=== PATIENT | female | born 1935 | race Hispanic/Latino ===

== ENCOUNTER 2017-11-26 21:34 | Inpatient (IN) | payer MEDICARE ==
[2017-11-26 21:54] VITALS: BMI 36.7
--- NOTE | 2017-11-26 21:55 | ED PDOC ---
Arrival/HPI - General Chief Complaint: Syncope Time Seen by Provider: 11/26/17 21:38 Historian: Patient - History of Present Illness Narrative History of Present Illness (Text): 11/26/17 21:55 Kimi Apple is an 82 year old female, whose past medical history includes anxiety, hypertension, sciatica, and spinal stenosis, who presents to the emergency department brought in by EMS accompanied by family status post syncopal episode . Daughter states patient was at a family member's mott at [facility] [place] prior to arrival when she began feeling weak, dizzy, and light-headed. Daughter states patient subsequently had a brief syncopal episode but did not fall to the ground. EMS was notified and patient brought to the ER for further evaluation. Patient denies any headache, chest pain, shortness of breath, abdominal pain, nausea, vomiting, diarrhea, neck pain, or any other complaints. PMD: Dr. Ya Arias Time/Duration: Prior to Arrival Symptom Onset: Gradual Symptom Course: Unchanged Activities at Onset: Light Context: Standing, Other (Spiritism) Past Medical History - Provider Review Nursing Documentation Reviewed: Yes - Cardiac Hx Hypertension: Yes - Pulmonary Hx Respiratory Disorders: No - Neurological Other/Comment: hx sciatica - Renal Hx Renal Disorder: No - Endocrine/Metabolic Hx Endocrine Disorders: No - Hematological/Oncological Hx Blood Disorders: No - Integumentary Hx Dermatological Disorder: No - Musculoskeletal/Rheumatological Hx Osteoarthritis: Yes - Gastrointestinal Hx Gastrointestinal Disorders: No - Genitourinary/Gynecological Hx Genitourinary Disorders: No - Psychiatric Hx Depression: Yes Hx Substance Use: No - Anesthesia Hx Anesthesia: No Hx Anesthesia Reactions: No Hx Malignant Hyperthermia: No Family/Social History - Physician Review Nursing Documentation Reviewed: Yes Family/Social History: Unknown Family HX Smoking Status: Never Smoked Hx Alcohol Use: No Hx Substance Use: No Allergies/Home Meds Allergies/Adverse Reactions: Allergies No Known Allergies Allergy (Verified 11/26/17 21:47) Home Medications: Home Meds Medication Instructions Recorded Confirmed Escitalopram [Lexapro] 10 mg PO DAILY 11/26/17 11/26/17 Metoprolol Succinate [Toprol XL] 50 mg PO DAILY 11/26/17 11/26/17 Tramadol HCl/Acetaminophen 1 tab PO Q8 11/26/17 11/26/17 [Tramadol-Acetaminophn 37.5-325] Review of Systems - Physician Review All systems were reviewed & negative as marked: Yes - Review of Systems Constitutional: Other (+generalized weakness). absent: Fevers Eyes: Normal ENT: Normal Respiratory: Normal. absent: SOB, Cough Cardiovascular: Syncope. absent: Chest Pain Gastrointestinal: Normal Genitourinary Female: Normal Musculoskeletal: Normal. absent: Back Pain, Neck Pain Skin: Normal. absent: Rash, Pruritis Neurological: Dizziness Endocrine: Normal Hemo/Lymphatic: Normal Psychiatric: Normal Physical Exam Vital Signs Reviewed: Yes Vital Signs Pulse Resp BP Pulse Ox 11/26/17 23:29 98 H 18 158/90 H 100 11/26/17 23:00 108 H 197/100 H 11/26/17 22:19 188/80 H 11/26/17 22:15 114 H 18 204/91 H 97 Temperature: Afebrile Blood Pressure: Hypertensive Pulse: Regular Respiratory Rate: Normal Appearance: Positive for: Well-Appearing, Non-Toxic, Comfortable Pain Distress: None Mental Status: Positive for: Alert and Oriented X 3 - Systems Exam Head: Present: Atraumatic, Normocephalic Pupils: Present: PERRL Extroacular Muscles: Present: EOMI Conjunctiva: Present: Normal Ears: Present: Normal, NORMAL TM, Normal Canal. No: Erythema, TM Bulging, Fluid , TM Perf Mouth: Present: Moist Mucous Membranes Pharnyx: Present: Normal. No: ERYTHEMA, EXUDATE, TONSILS ENLARGED, Peritonsilar Swelling, Uvular Deviation, Muffled/Hoarse Voice, Strider, Soft Palate/Uvular Edema Nose (External): Present: Atraumatic Nose (Internal): Present: Normal Inspection Neck: Present: Normal Range of Motion. No: Meningeal Signs, MIDLINE TENDERNESS , Paraspinal Tenderness Respiratory/Chest: Present: Clear to Auscultation, Good Air Exchange. No: Respiratory Distress, Accessory Muscle Use Cardiovascular: Present: Regular Rate and Rhythm, Normal S1, S2. No: Murmurs Abdomen: No: Tenderness, Distention, Peritoneal Signs Back: Present: Normal Inspection. No: CVA Tenderness, Midline Tenderness, Paraspinal Tenderness Upper Extremity: Present: Normal Inspection. No: Cyanosis, Edema Lower Extremity: Present: Normal Inspection. No: Edema Neurological: Present: GCS=15, CN II-XII Intact, Speech Normal, Motor Func Grossly Intact, Normal Sensory Function, Normal Cerebellar Funct, Memory Normal Skin: Present: Warm, Dry, Normal Color. No: Rashes Psychiatric: Present: Alert, Oriented x 3, Normal Insight, Normal Concentration Medical Decision Making ED Course and Treatment: 11/26/17 21:55 Impression: 82 year old female brought in s/p syncopal episode. Plan: -- CT Head w/o contrast -- EKG -- CXR -- Labs, cardiac enzymes -- Reassess and disposition Progress Notes: Reviewed EKG, sinus tachycardia at [address] bpm[address] Non-specific ST/T wave changes. 11/26/17 23:37 Reviewed radiology, CXR shows no acute processes. CT Head shows: Brain: There is mild diffuse cerebral atrophy present, consistent with this patient's age. There is mild diffuse heterogeneity of the white matter attenuation, consistent with chronic white matter ischemic changes. No hemorrhage. Ventricles: The ventricular system demonstrates mild diffuse compensatory enlargement. Bones/joints: Unremarkable. No acute fracture. Soft tissues: Unremarkable. Sinuses: Unremarkable as visualized. No acute sinusitis. Mastoid air cells: Unremarkable as visualized. No mastoid effusion. IMPRESSION: Age-related atrophy and chronic white matter ischemic changes, with no evidence of an acute intracranial abnormality. 11/26/17 23:57 Case discussed with medical affairs director oncology transplant network manager, who is aware and agrees with plan. 11/26/17 23:[address] Jarrell Higgins, who is aware and agrees with plan. Accepts pt in to hospitalist service. Pt will go to Telemetry observation for syncope. - Lab Interpretations Lab Results: 11/26/17 22:18 11/26/17 22:18 Lab Results 11/26/17 22:18: WBC 6.4, RBC 4.38, Hgb 12.1, Hct 36.7, MCV 83.8, MCH 27.6, MCHC 33.0, RDW 15.0 H, Plt Count 215, MPV 9.4 11/26/17 22:18: Sodium 144, Potassium 4.1, Chloride 105, Carbon Dioxide 26, Anion Gap 17, BUN 25 H, Creatinine 1.0, Est GFR ( Amer) > 60, Est GFR ( Non-Af Amer) 53, Random Glucose 102, Calcium 10.1, Total Bilirubin 0.4, AST 33, ALT 29, Alkaline Phosphatase 63, Lactate Dehydrogenase 552, Total Creatine Kinase 155, Troponin I < 0.01, Total Protein 7.9, Albumin 4.6, Globulin 3.3, Albumin/Globulin Ratio 1.4 11/26/17 22:18: PT 11.2, INR 0.98, APTT 30.6 I have reviewed the lab results: Yes - RAD Interpretation Radiology Orders: 11/26/17 21:57 HEAD W/O CONTRAST [CT] Stat 11/26/17 21:58 CHEST PORTABLE [RAD] Stat Image Scientist: ED Physician, Radiologist - EKG Interpretation Interpreted by ED Physician: Yes Type: 12 lead EKG - Medication Orders Current Medication Orders: Discontinued Medications Clonidine HCl (Catapres) 0.2 mg PO STAT STA Stop: 11/26/17 22:44 Last Admin: 11/26/17 23:00 Dose: 0.2 mg MAR Pulse and Blood Pressure Document 11/26/17 23:00 AD (Rec: 11/26/17 23:17 AD [id number]) Pulse Pulse Rate (60-90 beats/min) 108 Blood Pressure Blood Pressure (100/60-150/90 mm Hg) 197/100 - Scribe Statement The provider has reviewed the documentation as recorded by the Meli Blake Provider Scribe Attestation: All medical record entries made by the Scribe were at my direction and personally dictated by me. I have reviewed the chart and agree that the record accurately reflects my personal performance of the history, physical exam, medical decision making, and the department course for this patient. I have also personally directed, reviewed, and agree with the discharge instructions and disposition. Disposition/Present on Arrival - Present on Arrival Any Indicators Present on Arrival: No History of DVT/PE: No History of Uncontrolled Diabetes: No Urinary Catheter: No History of Decub. Ulcer: No History Surgical Site Infection Following: None - Disposition Have Diagnosis and Disposition been Completed?: Yes Diagnosis: Syncope Disposition: HOSPITALIZED Disposition Time: 00:01 Patient Plan: Observation Condition: STABLE Discharge Instructions (ExitCare): Syncope (ED) Referrals: Alejandro Arias MD [Primary Care Provider] - Follow up with primary Forms: [employer] (Romanian)
[2017-11-26 22:22] LABS: HEMOGLOBIN 12.1 g/dL (12.0-16.0); MEAN CELL VOLUME 83.8 fl (80.0-105.0); MEAN CORPUSCULAR HEMOGLOBIN 27.6 pg (25.0-35.0); MEAN PLATELET VOLUME 9.4 fl (7.0-11.0); RBC 4.38 10^6/uL (3.5-6.1); WHITE BLOOD COUNT 6.4 10^3/ul (4.5-11.0)
[2017-11-26 22:32] LABS: ALB/GLOB RATIO 1.4 (1.1-1.8); ALBUMIN 4.6 g/dL (3.0-4.8); ALT/SGPT 29 U/L (7-56); AST/SGOT 33 U/L (14-36); BLOOD UREA NITROGEN 25 mg/dL (7-21); CALCIUM 10.1 mg/dL (8.4-10.5); GFR AFRICAN-AMERICAN > 60; GFR NON-AFRICAN AMERICAN 53
[2017-11-26 22:42] LABS: TROPONIN I < 0.01 ng/mL
[2017-11-26 22:44] LABS: INR 0.98 (0.93-1.08); PARTIAL THROMBOPLASTIN TIME 30.6 Seconds (25.1-36.5); PROTHROMBIN TIME 11.2 SECONDS (9.4-12.5)
--- NOTE | 2017-11-26 23:36 | CT ---
EXAM: CT Head Without Intravenous Contrast CLINICAL HISTORY: 82 years old, female; Signs and symptoms; Syncope and collapse TECHNIQUE: Axial computed tomography images of the head/brain without intravenous contrast. All CT scans at this facility use one or more dose reduction techniques, viz.: automated exposure control; ma/kV adjustment per patient size (including targeted exams where dose is matched to indication; i.e. head); or iterative reconstruction technique. Coronal and sagittal reformatted images were created and reviewed. COMPARISON: No relevant prior studies available. FINDINGS: Brain: There is mild diffuse cerebral atrophy present, consistent with this patient's age. There is mild diffuse heterogeneity of the white matter attenuation, consistent with chronic white matter ischemic changes. No hemorrhage. Ventricles: The ventricular system demonstrates mild diffuse compensatory enlargement. Bones/joints: Unremarkable. No acute fracture. Soft tissues: Unremarkable. Sinuses: Unremarkable as visualized. No acute sinusitis. Mastoid air cells: Unremarkable as visualized. No mastoid effusion. IMPRESSION: Age-related atrophy and chronic white matter ischemic changes, with no evidence of an acute intracranial abnormality.
[2017-11-27] MEDS ORDERED: Sodium Chloride 0.9% 1,000 ML IV SCH (01:30)
--- NOTE | 2017-11-27 01:31 | CP.PCM.HP ---
<Dnaa Meehan - Last Filed: 11/27/17 01:12> History of Present Illness - History of Present Illness History of Present Illness: Dana Meehan, PGY1, H&P for Dr Aury Higgins: CC: near syncope 82 year old female, whose past medical history includes anxiety, hypertension, OA, sciatica, and spinal stenosis, presents for a near syncopal episode tonight. Pt was at her granddaughter[place] tonight [place] [employer], where she got very emotional. Pt then went to suddenly get up from sitting position to standing, when she experienced lightheadedness, mild dizziness for 5-10 secs. Her daughters by her side caught her and put her back on the chair. Denies trauma, LOC, confusion, urinary/bowel incontinence, tongue biting, cp, sob, palpitations, hearing changes/tinnitus, headache, neck pain. In ED, pt hypertensive, given clonidine. initial trop negx1, ekg shows sinus bradycardia (pt on home metoprolol). 12 point ROS obtained and neg, except as per HPI. PMD: Hugo PMH: Sciatica, OA, HTN PSH: cholecystectomy ALl: NKA FH: denies SH: lives with ; daughters live upstairs. walks with a walker. Denies etoh/tobacco/illicit drug use. was always a housewife. Meds: see mar Present on Admission - Present on Admission Any Indicators Present on Admission: No History of DVT/PE: No History of Uncontrolled Diabetes: No Urinary Catheter: No Decubitus Ulcer Present: No Review of Systems - Review of Systems All systems: reviewed and no additional remarkable complaints except Review of Systems: as per HPI Past Patient History - Past Social History Smoking Status: Never Smoked - CARDIAC Hx Hypertension: Yes - PULMONARY Hx Respiratory Disorders: No - NEUROLOGICAL Other/Comment: hx sciatica - RENAL Hx Chronic Kidney Disease: No - ENDOCRINE/METABOLIC Hx Endocrine Disorders: No - HEMATOLOGICAL/ONCOLOGICAL Hx Blood Disorders: No - INTEGUMENTARY Hx Dermatological Problems: No - MUSCULOSKELETAL/RHEUMATOLOGICAL Hx Osteoarthritis: Yes - GASTROINTESTINAL Hx Gastrointestinal Disorders: No - GENITOURINARY/GYNECOLOGICAL Hx Genitourinary Disorders: No - PSYCHIATRIC Hx Depression: Yes Hx Substance Use: No - SURGICAL HISTORY Hx Surgeries: No - ANESTHESIA Hx Anesthesia: No Hx Anesthesia Reactions: No Hx Malignant Hyperthermia: No Meds Allergies/Adverse Reactions: Allergies Allergy/AdvReac Type Severity Reaction Status Date / Time No Known Allergies Allergy Verified 11/26/17 21:47 Physical Exam - Constitutional Appears: Non-toxic, No Acute Distress - Head Exam Head Exam: ATRAUMATIC, NORMOCEPHALIC - Eye Exam Eye Exam: EOMI, PERRL. absent: Conjunctival injection, Nystagmus, Scleral icterus Pupil Exam: NORMAL ACCOMODATION, PERRL. absent: Fixed, Irregular, Unequal - ENT Exam ENT Exam: Mucous Membranes Dry - Neck Exam Neck exam: Positive for: Full Rom - Respiratory Exam Respiratory Exam: Clear to Auscultation Bilateral, NORMAL BREATHING PATTERN. absent: Chest Wall Tenderness, Rales, Rhonchi, Wheezes, Stridor - Cardiovascular Exam Cardiovascular Exam: Bradycardia, +S1, +S2. absent: Systolic Murmur - GI/Abdominal Exam GI & Abdominal Exam: Normal Bowel Sounds, Soft. absent: Distended, Guarding, Mass, Organomegaly, Rebound, Rigid, Tenderness - Extremities Exam Extremities exam: Positive for: normal inspection. Negative for: calf tenderness, pedal edema - Back Exam Back exam: NORMAL INSPECTION - Neurological Exam Neurological exam: Alert, CN II-XII Intact, Oriented x3, Reflexes Normal - Expanded Neurological Exam Expanded Patient oriented to: person, place, time Cranial nerves: EOM's Intact: Normal, Facial Palsey w/Forehead Movement: Normal , Facial Palsey w/o Forehead Movement: Normal, Facial Sensation: Normal, Gag Reflex: Normal, Nystagmus: Normal, Tongue Deviation: Normal Cerebellar Function: Finger to Nose: Normal, Heel to Alvarez: Normal Upper motor neuron: Babinski Sign: Normal, Pronator Drift: Normal Sensory exam: Lower Extremity Light Touch: Normal, Upper Extremity Light Touch: Normal Neuro motor strength exam: Left Upper Extremity: 5, Right Upper Extremity: 5, Left Lower Extremity: 5, Right Lower Extremity: 5 DTR: Achilles Tendon Left: 2+, Achilles Tendon Right: 2+, Bicep Left: 2+, Bicep Right: 2+, Patellar Left: 2+, Patellar Right: 2+ Coma Scale Eye Opening: SPONTANEOUS Coma Scale Motor Response: OBEYS COMMANDS Coma Scale Verbal: Oriented Coma Scale Total: 15 - Psychiatric Exam Psychiatric exam: Normal Affect, Normal Mood - Skin Skin Exam: Dry, Normal Color, Warm Results - Vital Signs Recent Vital Signs: Last Vital Signs Temp Pulse 80 11/27/17 00:45 Resp 18 11/27/17 00:45 BP 148/84 11/27/17 00:45 Pulse Ox 95 11/27/17 00:45 - Labs Result Diagrams: 11/26/17 22:18 11/26/17 22:18 Assessment & Plan - Assessment and Plan (Free Text) Assessment: 82 year old female with hx of HTN, OA, sciatica, presents for near syncope: Near syncopal episode: 2/2 likely vasovagal (at granddaughter's mott), less likely: carotid sinus vs arrythmia vs structural heart disease vs ACS vs neurological cause vs orthostatics - Carotid doppler - Tele monitoring - Echo - initial trop neg, EKG shows HR 58. Sinus bradycardia LVH. peaked T waves in leads V3, V4 - trops x2, ekg in AM - TSH, lipid panel, A1c - Cardio consulted. f/u recs - Neuro checks - Neuro consult. f/u recs - orthostatic VS - fall precautions HTN: - elevated BP in ED - home med metoprolol - hydralazine prn - cont to monitor Hx of OA/sciatica: - home med ultracet Hx of depression: - hold home lexapro in setting of dizziness/near syncope PPX: protonix, scds Diet HHD Discussed with Dr Aury Higgins. - Date & Time Date: 11/27/17 Time: 01:31 <Mellissa Higgins - Last Filed: 11/27/17 21:56> Results - Vital Signs Recent Vital Signs: Last Vital Signs Temp 98.4 F 11/27/17 18:00 Pulse 59 L 11/27/17 18:00 Resp 18 11/27/17 18:00 BP 133/62 11/27/17 18:00 Pulse Ox 97 11/27/17 18:00 - Labs Result Diagrams: 11/26/17 22:18 11/26/17 22:18
[2017-11-27] MEDS: TraMADol/Apap 37.5/325 mg Tab PO SCH ×3 (06:32→22:41)
[2017-11-27] MEDS: Pantoprazole 20 mg EC Tab PO SCH ×2 (06:33→15:13)
[2017-11-27 07:27] LABS: HDL CHOLESTEROL 42 mg/dL (29-60)
[2017-11-27 07:38] LABS: LDL CHOLESTEROL 77 mg/dL (0-129)
--- NOTE | 2017-11-27 09:51 | CARD ---
APPROVED REPORT EKG Measurement Heart [id number] [id number] [id number] <Conclusion> Sinus bradycardia Voltage criteria for left ventricular hypertrophy
--- NOTE | 2017-11-27 09:54 | CARD ---
APPROVED REPORT EKG Measurement Heart [id number] 192P21 [id number] <Conclusion> Sinus bradycardia Voltage criteria for left ventricular hypertrophy No change
[2017-11-27] MEDS ORDERED: Metoprolol Succinate 50 mg XL Tab PO SCH ×2 (10:00)
--- NOTE | 2017-11-27 10:06 | RAD ---
HISTORY: syncope COMPARISON: No prior. FINDINGS: LUNGS: No active pulmonary disease. PLEURA: No significant pleural effusion identified, no pneumothorax apparent. CARDIOVASCULAR: Normal. OSSEOUS STRUCTURES: No significant abnormalities. VISUALIZED UPPER ABDOMEN: Normal. OTHER FINDINGS: None. IMPRESSION: No active disease.
--- NOTE | 2017-11-27 12:01 | CP.PCM.CON ---
History of Present Illness - History of Present Illness History of Present Illness: Neurology Consultation Note: Mrs. Apple is an 2-year-old woman with a past medical history of anxiety, hypertension, OA, sciatica, and spinal stenosis, who had a near syncopal episode at [employer] last night. According to report, the patient was at a mott being held for her granddaughter and was quite emotional and stressed. She stood from a seated position and nearly syncopized after experiencing light- headedness. She sat down and she improved without LOC. Neurology was consulted for assistance with management and care. CT head was normal for the patient's age. 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, Sciatica) Hx Alzheimer's Disease: No HX Cerebrovascular Accident: No Hx Dementia: No Hx Dizziness: Yes Hx Meningitis: No Hx Migraine: No Hx Parkinson's Disease: No Hx Seizures: No Hx Transient Ischemic Attacks (TIA): No - HEENT Hx HEENT Problems: Yes Hx Blind: No Hx Cataracts: Yes (right eye) Hx Deafness: No Hx Difficulty Chewing: No Hx Epistaxis: No Hx Glaucoma: No Hx Macular Degeneration: No - RENAL Hx Chronic Kidney Disease: No Hx Dialysis: No Hx Kidney Stones: Yes Hx Neurogenic Bladder: No Hx Pyelonephritis: No Hx Renal (Kidney) Cancer: No Hx Renal Failure: No - ENDOCRINE/METABOLIC Hx Endocrine Disorders: No Hx Adrenal Cancer: No Hx Diabetes Insipidus: No Hx Diabetes Mellitus Type 1: No Hx Diabetes Mellitus Type 2: No Hx Hyperthyroidism: No Hx Hypothyroidism: No Hx Systemic Lupus Erythematosus: No - HEMATOLOGICAL/ONCOLOGICAL Hx Blood Disorders: No Hx AIDS: No Hx Anemia: No Hx Cancer: No Hx Chemotherapy: No Hx Cirrhosis: No Hx Hemophilia: No Hx Hepatitis A: No Hx Hepatitis B: No Hx Hepatitis C: No Hx Human Immunodeficiency Virus (HIV): No Hx Metastesis: No Hx Shingles: No Hx Sickle Cell Disease: No Hx Unexplained Bleeding: No - INTEGUMENTARY Hx Dermatological Problems: No Hx Basil Cell: No Hx Eczema: No Hx Melanoma: No Hx Psoriasis: No Hx Squamous Cell: No - MUSCULOSKELETAL/RHEUMATOLOGICAL Hx Arthritis: Yes - GASTROINTESTINAL Hx Gastrointestinal Disorders: No Hx Colostomy: No Hx Crohn's Disease: No Hx Diverticulitis: No Hx Gall Bladder Disease: Yes Hx Gastroesophageal Reflux: No Hx Ileostomy: No Hx Liver Failure: No Hx Pancreatitis: No HX Swallowing Problems: No Hx Ulcer: No - GENITOURINARY/GYNECOLOGICAL Hx Genitourinary Disorders: No Hx Hematuria: No Hx Incontinence: No Hx Sexually Transmitted Disorders: No Hx Urinary Tract Infection: No - PSYCHIATRIC Hx Psychophysiologic Disorder: Yes Hx Anxiety: Yes Hx Bipolar Disorder: No Hx Depression: Yes Hx Emotional Abuse: No Hx Hallucinations: No Hx Panic Symptoms: No Hx Paranoia: No Hx Post Traumatic Stress Disorder: No Hx Psychosis: No Hx Physical Abuse: No Hx Schizophrenia: No Hx Sexual Abuse: No - SURGICAL HISTORY Hx Surgeries: Yes Hx Amputation: No Hx Appendectomy: No Hx Cardiac Catheterization: No Hx Cholecystectomy: Yes Hx Coronary Stent: No Hx Gastric Bypass Surgery: No Hx Hysterectomy: No Hx Joint Replacement: No Hx Kidney Transplant: No Hx Liver Transplant: No Hx Mastectomy: No Hx Musculoskeletal Surgery: No Hx Open Heart Surgery: No Hx Orthopedic Surgery: No Hx Splenectomy: No Hx Valve Replacement: No - ANESTHESIA Hx Anesthesia: No Hx Anesthesia Reactions: No Hx Malignant Hyperthermia: No Meds Allergies/Adverse Reactions: Allergies Allergy/AdvReac Type Severity Reaction Status Date / Time No Known Allergies Allergy Verified 11/26/17 21:47 - Medications Medications: Current Medications Hydralazine HCl (Apresoline) 10 mg PO Q6H PRN PRN Reason: Systolic Blood Pressure Pantoprazole Sodium (Protonix Ec Tab) 20 mg PO 0600,1600 [facility] Last Admin: 11/27/17 06:33 Dose: 20 mg Tramadol/Acetaminophen (Ultracet 37.5/325 Mg) 1 tab PO Q8 JEFFRY Stop: 12/02/17 06:01 Last Admin: 11/27/17 06:32 Dose: 1 tab Physical Exam - Neurological Exam Neurological exam: Alert, CN II-XII Intact, Normal Gait, Oriented x3, Reflexes Normal Results - Vital Signs Recent Vital Signs: Last Vital Signs Temp 97.8 F 11/27/17 06:00 Pulse 49 L 11/27/17 09:20 Resp 19 11/27/17 06:00 BP 108/43 L 11/27/17 09:20 Pulse Ox 96 11/27/17 06:00 - Labs Result Diagrams: 11/26/17 22:18 11/26/17 22:18 Labs: Laboratory Results - last 24 hr 11/27/17 11/27/17 06:00 06:00 Triglycerides 71 Cholesterol 133 LDL Cholesterol Direct 77 HDL Cholesterol 42 TSH 3rd Generation 3.27 Assessment & Plan (1) Vasovagal near syncope Assessment and Plan: No further neurological work-up is recommended. Please follow up with primary care physician for management of underlying conditions. Consider cardiac work- up. Thank you. Status: Acute Priority: High
--- NOTE | 2017-11-27 21:36 | CON ---
DATE: 11/27/2017 CARDIOLOGY FOLLOWUP HISTORY: The patient is an 82-year-old woman, who presents feeling dizzy and weak after being at [employer] during the anniversary of the of her daughter. The patient suffers from hypertension. No shortness of breath. No chest pain noted. SOCIAL HISTORY: No smoking. REVIEW OF SYSTEMS: Fourteen-point review of systems reviewed in detail. No cardiac symptomatology is noted. Her main complaint is arthritis. The patient is feeling much better. PHYSICAL EXAMINATION: VITAL SIGNS: Blood pressure is 104/43 with the heart rates in the 40s, normal sinus rhythm. NECK: Negative JVD. LUNGS: Without rales. HEART: Reveals S1, S2 without murmurs or gallops. EXTREMITIES: Without edema. LABORATORY DATA: Laboratories include an EKG that shows sinus bradycardia in the 40s. Hemoglobin is 12.1. Chemistries: Troponin is negative x1. IMPRESSION: 1. Near syncope after the patient feeling anxious in memory of the of her daughter. 2. History of hypertension. 3. Sinus bradycardia. 4. Arthritis. PLAN: Given these findings, we will discontinue her beta-blockers, which is causing her heart rate to be too slow. In addition, we will obtain an echocardiogram to evaluate LV function. Darin Gary MD
[2017-11-28] MEDS: Pantoprazole 20 mg EC Tab PO SCH ×2 (05:11→16:14)
[2017-11-28] MEDS: TraMADol/Apap 37.5/325 mg Tab PO SCH ×3 (05:11→22:03)
[2017-11-28 08:44] LABS: TROPONIN I < 0.01 ng/mL
[2017-11-28 08:50] LABS: ALB/GLOB RATIO 1.4 (1.1-1.8); ALBUMIN 3.8 g/dL (3.0-4.8); ALT/SGPT 28 U/L (7-56); AST/SGOT 27 U/L (14-36); BLOOD UREA NITROGEN 20 mg/dL (7-21); CALCIUM 8.9 mg/dL (8.4-10.5); GFR AFRICAN-AMERICAN > 60; GFR NON-AFRICAN AMERICAN 53
--- NOTE | 2017-11-28 09:28 | CARD ---
APPROVED REPORT EKG Measurement Heart [id number] <Conclusion> Sinus bradycardia with APCs Moderate voltage criteria for LVH, may be normal variant No change except for APCs
--- NOTE | 2017-11-28 11:30 | US ---
PROCEDURE: Bilateral carotid artery duplex ultrasound HISTORY: Carotid stenosis PHYSICIAN(S): Darin Richards MD. TECHNIQUE: Duplex sonography and color-flow Doppler were used to evaluate the carotid bifurcations and limited segments of the vertebral arteries bilaterally. FINDINGS: There is mild smooth heterogeneous echogenic plaque noted at the carotid bifurcations bilaterally. The peak systolic velocity in the proximal right internal carotid artery is 114 cm/sec. This corresponds to a 20 to 39% proximal right ICA stenosis. Normal systolic velocities are noted in the proximal right external carotid artery. There is antegrade flow in the right vertebral artery. The peak systolic velocity in the proximal left internal carotid artery is 120 cm/sec. This corresponds to a 20 to 39% proximal left ICA stenosis. Normal systolic velocities are noted in the proximal left external carotid artery. There is antegrade flow in the left vertebral artery. IMPRESSION: 1. Bilateral 20-39% proximal ICA stenoses. 2. Antegrade flow in both vertebral arteries.
--- NOTE | 2017-11-28 16:48 | CP.PCM.PN ---
Subjective - Date & Time of Evaluation Date of Evaluation: 11/28/17 Time of Evaluation: 16:45 - Subjective Subjective: Patient seen and examined this AM. No acute events reported overnight. Patient reports feeling slightly better today, but remains weak. Objective - Vital Signs/Intake and Output Vital Signs (last 24 hours): Temp Pulse Resp BP Pulse Ox 98.2 F 54 L 18 142/55 L 96 11/28/17 12:00 11/28/17 14:00 11/28/17 12:00 11/28/17 12:15 11/28/17 06:00 Intake and Output: 11/28/17 11/28/17 06:59 18:59 Intake Total 120 420 Output Total 600 Balance 120 -180 - Medications Medications: Current Medications Hydralazine HCl (Apresoline) 10 mg PO Q6H PRN PRN Reason: Systolic Blood Pressure Last Admin: 11/28/17 08:22 Dose: 10 mg Lisinopril (Zestril) 10 mg PO DAILY [facility] Last Admin: 11/28/17 12:15 Dose: 10 mg Pantoprazole Sodium (Protonix Ec Tab) 20 mg PO 0600,1600 [facility] Last Admin: 11/28/17 16:14 Dose: 20 mg Tramadol/Acetaminophen (Ultracet 37.5/325 Mg) 1 tab PO Q8 [facility] Stop: 12/02/17 06:01 Last Admin: 11/28/17 15:00 Dose: 1 tab - Labs Labs: 11/28/17 08:00 PT 11.2 SECONDS (9.4-12.5) 11/26/17 22:18 INR 0.98 (0.93-1.08) 11/26/17 22:18 APTT 30.6 Seconds (25.1-36.5) 11/26/17 22:18 - Constitutional Appears: Non-toxic - Head Exam Head Exam: ATRAUMATIC, NORMAL INSPECTION, NORMOCEPHALIC - Eye Exam Eye Exam: EOMI, PERRL - ENT Exam ENT Exam: Mucous Membranes Moist - Respiratory Exam Respiratory Exam: Clear to Ausculation Bilateral, NORMAL BREATHING PATTERN. absent: Rhonchi, Wheezes - Cardiovascular Exam Cardiovascular Exam: REGULAR RHYTHM, +S1, +S2 - GI/Abdominal Exam GI & Abdominal Exam: Soft, Normal Bowel Sounds. absent: Guarding, Rigid, Tenderness - Extremities Exam Extremities Exam: absent: Calf Tenderness, Tenderness - Neurological Exam Neurological Exam: Alert, Awake, Oriented x3 - Psychiatric Exam Psychiatric exam: Normal Affect, Normal Mood - Skin Skin Exam: Dry, Warm Assessment and Plan - Assessment and Plan (Free Text) Assessment: 82 year old female with past medical history that includes HTN, OA, sciatica, anxiety and spinal stenosis who presented to [facility] for near syncopal episode. Patient was admitted with cardiology and neurology consultation. Patient evaluated with Physical therapy and determined to be unsteady on feet requiring further physical therapy services. Plan: Pre-Syncope Details: - Patient with near syncopal episode at worship during mott for granddaughter - Family and patient report significant stress and anxiety related to episode - Denies trauma, seizure activity, urinary/bowel incontinence - Echocardiogram f/u official report - Carotid US: bilateral 20-39% stenosis - Head CT: Negative for acute findings - Troponins negative x3 Plan: - Neuro checks - Fall precautions - Physical therapy eval - Bradycardic during stay Deconditioning Details: - Patient with history of OA and left knee arthritis - Patient reportedly weak with previous Physical therapy Plan: - Physical therapy f/u TCU recommendations HTN Details: - Elevated BP in ED - Home metroprolol Plan: - Hold home medications due to bradycardia - Lisinopril - monitor Depression - holding lexapro in setting of dizziness/near syncope GI/DVT ppx - Protonix - SCDs Patient seen and case reviewed with attending
[2017-11-29 00:35] VITALS: RESP 20; O2SAT 95
[2017-11-29] MEDS: Pantoprazole 20 mg EC Tab PO SCH (05:24)
[2017-11-29] MEDS: TraMADol/Apap 37.5/325 mg Tab PO SCH (05:25)
[2017-11-29 08:29] LABS: ALB/GLOB RATIO 1.5 (1.1-1.8); ALBUMIN 4.2 g/dL (3.0-4.8); ALT/SGPT 28 U/L (7-56); AST/SGOT 30 U/L (14-36); BLOOD UREA NITROGEN 17 mg/dL (7-21); CALCIUM 9.2 mg/dL (8.4-10.5); GFR AFRICAN-AMERICAN > 60; GFR NON-AFRICAN AMERICAN 60
[2017-11-29 11:43] VITALS: BP 118/58; PULSE 56; TEMP 98.7
--- NOTE | 2017-11-29 12:56 | CARD ---
APPROVED REPORT EXAM: Two-dimensional and M-mode echocardiogram with Doppler and color Doppler. INDICATION 2D DIMENSIONS IVSd1.2 (0.7-1.1cm)LVDd4.4 (3.9-5.9cm) PWd1.4 (0.7-1.1cm)LVDs3.1 (2.5-4.0cm) FS (%) 28.6 %LVEF (%)55.4 (>50%) M-Mode DIMENSIONS Left Atrium (MM)4.40 (2.5-4.0cm)Aortic Root3.10 (2.2-3.7cm) Aortic Cusp Exc.1.70 (1.5-2.0cm) Aortic Valve AoV Peak Rebukjwh773.0cm/Elli Peak GR.11mmHgAI P 1/2 [id number] Mitral Valve MV E Qvvuxren33.7cm/sMV A Xkdciijh29.8cm/sE/A ratio1.1 TDI Lateral E' Peak V8.09cm/sMedial E' Peak V5.22cm/sE/Lateral E'11.2 E/Medial E'17.4 Tricuspid Valve TR Peak Qgirtmet282bf/sRAP [id number] Peak Gr.31mmHg [id number] LEFT VENTRICLE There is mild concentric left ventricular hypertrophy. The left ventricular function is normal. The left ventricular ejection fraction is within the normal range. RIGHT VENTRICLE The right ventricle is normal size. ATRIA The left atrium is mildly dilated. The right atrium is mildly dilated. AORTIC VALVE The aortic valve is calcified but opens well. MITRAL VALVE The mitral valve is thickened but opens well. TRICUSPID VALVE The tricuspid valve leaflets are thickened , but open well. There is mild tricuspid regurgitation. There is mild to moderate pulmonary hypertension. PULMONIC VALVE The pulmonic valve is not well visualized. PERICARDIAL EFFUSION There is no pericardial effusion. <Conclusion> LVH with good LV function AovSclerosis without stenosis Dilated LA and RA Mild TR Mild to moderate pulmonary hypertension
--- NOTE | 2017-11-29 13:24 | PN ---
DATE: 11/29/2017 CARDIOLOGY FOLLOWUP SUBJECTIVE: The patient is sitting in a chair without complaints. PHYSICAL EXAMINATION: VITAL SIGNS: Blood pressure 118/58, heart rates in the 60s. There is no orthostatic changes. NECK: Negative JVD. LUNGS: Without rales. HEART: S1 and S2. EXTREMITIES: Without edema. LABORATORY DATA: Troponins are negative. Echocardiogram reveals aortic sclerosis without stenosis with good LV function and LVH. Her carotid ultrasound reveals no critical lesions. IMPRESSION: 1. No cardiac cause of her near syncope. 2. Hypertension. 3. Left ventricular hypertrophy. 4. Aortic sclerosis without stenosis. 5. Her symptoms may have been due to a vasovagal reaction to her emotional memory of the of her daughter. From a cardiac perspective, no further cardiac workup is necessary. Darin Gary MD
--- NOTE | 2017-11-29 13:32 | CP.PCM.DIS ---
<Gatito Phelan - Last Filed: 11/29/17 13:19> Provider - Provider Date of Admission: 11/27/17 16:05 Attending physician: Larry Jeffrey MD Primary care physician: Alejandro Arias MD Consults: Cardiology: Dr. Gary Neurology: Dr. Lema Time Spent in preparation of Discharge (in minutes): 45 Diagnosis - Discharge Diagnosis (1) Gait instability Status: Acute (2) Vasovagal near syncope Status: Acute Priority: High Hospital Course - Lab Results Lab Results: Most Recent Lab Values WBC 6.4 10^3/ul (4.5-11.0) 11/26/17 22:18 RBC 4.38 10^6/uL (3.5-6.1) 11/26/17:18 Hgb 12.1 g/dL (12.0-16.0) 11/26/17:18 Hct 36.7 % (36.0-48.0) 11/26/17:18 MCV 83.8 fl (80.0-105.0) 11/26/17:18 MCH 27.6 pg (25.0-35.0) 11/26/17:18 MCHC 33.0 g/dl (31.0-37.0) 11/26/17:18 RDW 15.0 % (11.5-14.5) H 11/26/17:18 Plt Count 215 10^3/uL (120.0-450.0) 11/26/17 22:18 MPV 9.4 fl (7.0-11.0) 11/26/17 22:18 PT 11.2 SECONDS (9.4-12.5) 11/26/17 22:18 INR 0.98 (0.93-1.08) 11/26/17 22:18 APTT 30.6 Seconds (25.1-36.5) 11/26/17 22:18 Sodium 142 mmol/L (132-148) 11/29/17 08:00 Potassium 3.9 mmol/L (3.6-5.0) 11/29/17 08:00 Chloride 105 mmol/L (98-107) 11/29/17 08:00 Carbon Dioxide 25 mmol/L (21-33) 11/29/17 08:00 Anion Gap 15 (10-20) 11/29/17 08:00 BUN 17 mg/dL (7-21) 11/29/17 08:00 Creatinine 0.9 mg/dl (0.7-1.2) 11/29/17 08:00 Est GFR ( Amer) > 60 11/29/17 08:00 Est GFR (Non-Af Amer) 60 11/29/17 08:00 Random Glucose 99 mg/dL (70-110) 11/29/17 08:00 Hemoglobin A1c 5.8 % (4.2-6.5) 11/27/17 05:00 Calcium 9.2 mg/dL (8.4-10.5) 11/29/17 08:00 Total Bilirubin 0.3 mg/dL (0.2-1.3) 11/29/17 08:00 AST 30 U/L (14-36) 11/29/17 08:00 ALT 28 U/L (7-56) 11/29/17 08:00 Alkaline Phosphatase 48 U/L (38-126) 11/29/17 08:00 Lactate Dehydrogenase 552 U/L (333-699) 11/26/17 22:18 Total Creatine Kinase 155 U/L (35-230) 11/26/17 22:18 Troponin I < 0.01 ng/mL 11/28/17 13:45 Total Protein 6.9 g/dL (5.8-8.3) 11/29/17 08:00 Albumin 4.2 g/dL (3.0-4.8) 11/29/17 08:00 Globulin 2.7 gm/dL 11/29/17 08:00 Albumin/Globulin Ratio 1.5 (1.1-1.8) 11/29/17 08:00 Triglycerides 71 mg/dL (35-160) 11/27/17 06:00 Cholesterol 133 mg/dL (130-200) 11/27/17 06:00 LDL Cholesterol Direct 77 mg/dL (0-129) 11/27/17 06:00 HDL Cholesterol 42 mg/dL (29-60) 11/27/17 06:00 TSH 3rd Generation 3.27 mIU/mL (0.46-4.68) 11/27/17 06:00 - Hospital Course Hospital Course: Patient is a 82 year old female with past medical history with anxiety, hypertension, OA, sciatica, and spinal stenosis who presented to [facility] after near syncopal episode experienced while attending a mott for her mirtha. Patient denied any loss of consciousness, trauma, or seizure activity. Cardiology was consulted and evaluated the patient. Echocardiogram was ordered and showed normal EF. Carotid US was preformed and showed 20-39% stenosis of the ICA. Cardiology held metoprolol due to patient being bradycardic. Patient was started on Lisinopril 10mg for BP control. Neurology evaluated the patient and with review of the Head CT(negative for acute findings ) reported the patient to be stable. Physical therapy evaluated the patient and recommended continued physical therapy due to patien'ts instability likely from chronic OA and deconditioning. Patient and family requested to be discharged home with plan for physical therapy at home. Patient was instructed to hold her metorprolol and follow up with her primary care physician. Discharge instructions, medication reconciliation, and follow up appointments were discussed with patient. At time of discharge was medically stable for discharge with follow up with primary care. - Date & Time of H&P Date of H&P: 11/27/17 Time of H&P: 01:12 Discharge Exam - Head Exam Head Exam: ATRAUMATIC, NORMOCEPHALIC - Eye Exam Eye Exam: EOMI Pupil Exam: PERRL - Respiratory Exam Respiratory Exam: Clear to PA & Lateral, NORMAL BREATHING PATTERN. absent: Rales, Rhonchi - Cardiovascular Exam Cardiovascular Exam: REGULAR RHYTHM, +S1, +S2 - GI/Abdominal Exam GI & Abdominal Exam: Normal Bowel Sounds, Soft. absent: Tenderness - Neurological Exam Neurological exam: Alert, Normal Gait (with assistance with rolling walker), Oriented x3 - Psychiatric Exam Psychiatric exam: Normal Affect, Normal Mood - Skin Skin Exam: Dry, Warm Discharge Plan - Discharge Medications Prescriptions: Lisinopril [Zestril] 10 mg PO DAILY #30 tab - Follow Up Plan Condition: STABLE Disposition: HOME/ ROUTINE Instructions: Vasovagal Response (DC), Near Fainting (DC) Additional Instructions: Follow up outpatient with primary care physician within 1 week Follow up with [facility] within 1-2 weeks upon discharge Take medications as prescribed to you Hold your metoprolol at this time Ambulate with assistance Follow up with physical therapy and home services recommendations Return to the hospital if you have return or worsening of your symptoms Referrals: Alejandro Arias MD [Primary Care Provider] - <Larry Jeffrey - Last Filed: 11/29/17 16:04> Provider - Provider Date of Admission: 11/27/17 16:05 Attending physician: Larry Jeffrey MD Primary care physician: Alejandro Arias MD Hospital Course - Lab Results Lab Results: Most Recent Lab Values WBC 6.4 10^3/ul (4.5-11.0) 11/26/17 22:18 RBC 4.38 10^6/uL (3.5-6.1) 11/26/17 22:18 Hgb 12.1 g/dL (12.0-16.0) 11/26/17:18 Hct 36.7 % (36.0-48.0) 11/26/17 22:18 MCV 83.8 fl (80.0-105.0) 11/26/17 22:18 MCH 27.6 pg (25.0-35.0) 11/26/17:18 MCHC 33.0 g/dl (31.0-37.0) 11/26/17:18 RDW 15.0 % (11.5-14.5) H 11/26/17:18 Plt Count 215 10^3/uL (120.0-450.0) 11/26/17 22:18 MPV 9.4 fl (7.0-11.0) 11/26/17 22:18 PT 11.2 SECONDS (9.4-12.5) 11/26/17 22:18 INR 0.98 (0.93-1.08) 11/26/17 22:18 APTT 30.6 Seconds (25.1-36.5) 11/26/17 22:18 Sodium 142 mmol/L (132-148) 11/29/17 08:00 Potassium 3.9 mmol/L (3.6-5.0) 11/29/17 08:00 Chloride 105 mmol/L (98-107) 11/29/17 08:00 Carbon Dioxide 25 mmol/L (21-33) 11/29/17 08:00 Anion Gap 15 (10-20) 11/29/17 08:00 BUN 17 mg/dL (7-21) 11/29/17 08:00 Creatinine 0.9 mg/dl (0.7-1.2) 11/29/17 08:00 Est GFR ( Amer) > 60 11/29/17 08:00 Est GFR (Non-Af Amer) 60 11/29/17 08:00 Random Glucose 99 mg/dL (70-110) 11/29/17 08:00 Hemoglobin A1c 5.8 % (4.2-6.5) 11/27/17 05:00 Calcium 9.2 mg/dL (8.4-10.5) 11/29/17 08:00 Total Bilirubin 0.3 mg/dL (0.2-1.3) 11/29/17 08:00 AST 30 U/L (14-36) 11/29/17 08:00 ALT 28 U/L (7-56) 11/29/17 08:00 Alkaline Phosphatase 48 U/L (38-126) 11/29/17 08:00 Lactate Dehydrogenase 552 U/L (333-699) 11/26/17 22:18 Total Creatine Kinase 155 U/L (35-230) 11/26/17 22:18 Troponin I < 0.01 ng/mL 11/28/17 13:45 Total Protein 6.9 g/dL (5.8-8.3) 11/29/17 08:00 Albumin 4.2 g/dL (3.0-4.8) 11/29/17 08:00 Globulin 2.7 gm/dL 11/29/17 08:00 Albumin/Globulin Ratio 1.5 (1.1-1.8) 11/29/17 08:00 Triglycerides 71 mg/dL (35-160) 11/27/17 06:00 Cholesterol 133 mg/dL (130-200) 11/27/17 06:00 LDL Cholesterol Direct 77 mg/dL (0-129) 11/27/17 06:00 HDL Cholesterol 42 mg/dL (29-60) 11/27/17 06:00 TSH 3rd Generation 3.27 mIU/mL (0.46-4.68) 11/27/17 06:00 Attending/Attestation - Attestation I have personally seen and examined this patient.: Yes I have fully participated in the care of the patient.: Yes I have reviewed all pertinent clinical information, including history, physical exam and plan: Yes Notes (Text): 11/29/17 15:59 Medical record note made by the resident after discussion with my direction and input after the patient was personally seen and examined by me. I have reviewed the chart and agree that the record accurately reflects by personal performance of the history, physical exam, data review, and medical decision-making, in the course for the patient. I have also personally directed the plan of care. 82 Yrs old female was admitted with Presyncope likely due to orthostatic hypotension.Patient remain stable, was evaluated by physical therapy prior to discharge.Patient was given education about ambulation prior to discharge.Home services will be arranged prior to discharge. Management plan was discussed in detail with patient and family. Education was provided. 11/29/17 16:04
--- NOTE | 2017-11-29 13:46 | CP.PCM.PN ---
<Gatito Phelan - Last Filed: 11/29/17 13:37> Subjective - Date & Time of Evaluation Date of Evaluation: 11/28/17 Time of Evaluation: 09:00 - Subjective Subjective: Patient was seen and evaluated. No acute complaints. No acute events overnight. Objective - Vital Signs/Intake and Output Vital Signs (last 24 hours): Temp Pulse Resp BP Pulse Ox 98.7 F 56 L 20 118/58 L 95 11/29/17 11:43 11/29/17 11:43 11/29/17 11:43 11/29/17 11:43 11/29/17 05:56 - Medications Medications: Current Medications Hydralazine HCl (Apresoline) 10 mg PO Q6H PRN PRN Reason: Systolic Blood Pressure Last Admin: 11/28/17 08:22 Dose: 10 mg Lisinopril (Zestril) 10 mg PO DAILY [facility] Last Admin: 11/29/17 09:36 Dose: 10 mg Pantoprazole Sodium (Protonix Ec Tab) 20 mg PO 0600,1600 [facility] Last Admin: 11/29/17 05:24 Dose: 20 mg Tramadol/Acetaminophen (Ultracet 37.5/325 Mg) 1 tab PO Q8 [facility] Stop: 12/02/17 06:01 Last Admin: 11/29/17 05:25 Dose: Not Given - Labs Labs: 11/29/17 08:00 PT 11.2 SECONDS (9.4-12.5) 11/26/17 22:18 INR 0.98 (0.93-1.08) 11/26/17 22:18 APTT 30.6 Seconds (25.1-36.5) 11/26/17 22:18 - Head Exam Head Exam: ATRAUMATIC, NORMAL INSPECTION, NORMOCEPHALIC - Eye Exam Eye Exam: EOMI, Normal appearance - ENT Exam ENT Exam: Mucous Membranes Moist - Respiratory Exam Respiratory Exam: Clear to Ausculation Bilateral. absent: Rales - Cardiovascular Exam Cardiovascular Exam: Bradycardia, +S1, +S2 - GI/Abdominal Exam GI & Abdominal Exam: Soft, Normal Bowel Sounds. absent: Tenderness - Extremities Exam Extremities Exam: Normal Inspection. absent: Calf Tenderness - Neurological Exam Neurological Exam: Alert, Awake, Oriented x3 - Psychiatric Exam Psychiatric exam: Normal Affect, Normal Mood - Skin Skin Exam: Dry, Warm Assessment and Plan (1) Gait instability Status: Acute (2) Vasovagal near syncope Status: Acute - Assessment and Plan (Free Text) Assessment: 82 year old female with hx of HTN, OA, sciatica, spinal stenosis who presented to [facility] with near syncope. Patient was admitted, neurology and cardiology were consulted and evaluated the patient. Physical therapy evaluated the patient and recommended physical therapy services. Plan: Near Syncopal Episode Details: - Etiology vasovagal vs. orthostatic vs. seizure vs. arrhythmia - Carotid doppler US 20-39% bilateral ICA - Echocardiogram final read pending - Trops negative - Orthostatic VS - PT Plan: - f/u PT eval, recommending TCU vs. home with services - TSH, lipid panel f/u - Fall precautions - Continuous telemetry due to bradycardia - Recommend home with services. HTN Details: - Chronic history Plan: - Hold home metoprolol - Start Lisinopril 10mg - Hydralazine prn Dispo: Physical therapy recommending home with services vs. TCU. Family discussion to be held overnight. Case and plan discussed with attending <Brittany Newman - Last Filed: 11/30/17 11:47> Objective - Vital Signs/Intake and Output Vital Signs (last 24 hours): Temp Pulse Resp BP Pulse Ox 98.7 F 56 L 20 118/58 L 95 11/29/17 11:43 11/29/17 11:43 11/29/17 11:43 11/29/17 11:43 11/29/17 05:56 - Labs Labs: 11/29/17 08:00 PT 11.2 SECONDS (9.4-12.5) 11/26/17 22:18 INR 0.98 (0.93-1.08) 11/26/17 22:18 APTT 30.6 Seconds (25.1-36.5) 11/26/17 22:18 Attending/Attestation - Attestation I have personally seen and examined this patient.: Yes I have fully participated in the care of the patient.: Yes I have reviewed all pertinent clinical information, including history, physical exam and plan: Yes Notes (Text): 11/28/17 82 year old female with past medical history of hypertension, arthritis and spinal stenosis who presented after near syncopal episode. In ER she was hypertensive >200s which responded to dose of clonidine. She was also noted to be bradycardic and her toprol is held. CT head was negative for acute findings. Carotid dopplers negative for significant stenosis. Echocardiogram was done with pending reading. She was seen by cardiology and neurology with no addition workup planned. She is started on lisinopril for hypertension. PT evaluation was appreciated who is recommending TCU. Will discuss with family regarding discharging home with services vs rehab. Brittany Newman MD Hospitalist.
== END 2017-11-29 14:36 | disposition home health service (06) | DRG 312 ==
LOC: ED 21:34 → ERH 23:59 → 2RNO 11-27 01:06 → OBSVTOIN 11-27 16:05
PROVIDERS: ADMIT Hospitalist; ATTEND Internal Medicine
DX: I95.1 Orthostatic hypotension (principal); R26.9 Unspecified abnormalities of gait and mobility; M19.90 Unspecified osteoarthritis, unspecified site; I11.9 Hypertensive heart disease without heart failure; M54.30 Sciatica, unspecified side; M48.00 Spinal stenosis, site unspecified; F41.9 Anxiety disorder, unspecified; F32.9 Major depressive disorder, single episode, unspecified; R00.1 Bradycardia, unspecified; I70.0 Atherosclerosis of aorta